=== PATIENT | male | born 1950 | race Caucasian/White ===

== ENCOUNTER 2017-10-30 06:42 | Observation (INO) ==
[2017-10-30] MEDS ORDERED: Bupivacaine/Epinephrine 0.5% Inj 50 ML Vial ONE (07:00)
[2017-10-30] MEDS ORDERED: fentaNYL Citrate Inj 100 MCG/2 ML Ampul ONE ×2 (07:10→11:36)
[2017-10-30] MEDS ORDERED: Chlorhexidine Gluconate 2% 1 Pack (2 Cloths) TOPICAL SCH (07:30)
[2017-10-30] MEDS ORDERED: Metoprolol Tartrate 25 MG Tablet PO SCH (07:30)
[2017-10-30] MEDS ORDERED: Sodium Chlor 0.9% Inj 500 ML IV.SIG SCH (08:00)
[2017-10-30] MEDS ORDERED: ceFAZolin Inj 2,000 MG in Sodium Chlor 0.9% Inj 100 ML IV.SIG SCH (08:15)
[2017-10-30] MEDS ORDERED: ceFAZolin 2 GM Premix Inj 2 GM/100 ML BAG IV.SIG ONE (08:17)
[2017-10-30] MEDS ORDERED: Famotidine PF Inj 20 MG/2 ML Vial ONE (08:19)
[2017-10-30] MEDS ORDERED: Lidocaine 2% Jelly 5 ML Syringe ONE (08:42)
[2017-10-30] MEDS ORDERED: Propofol Inj 500 MG/50 ML Vial ONE (09:37)
[2017-10-30] MEDS: Thrombin Topical Soln 5,000 UNIT Vial TOPICAL ONE (10:31)
[2017-10-30] MEDS: Gelatin Size 100 Topical Foam ONE (10:31)
--- NOTE | 2017-10-30 11:25 | XR ---
EXAM DATE: 10/30/2017 11:19 AM EDT AGE/SEX: 67 years / Male INDICATIONS: L4-L5 lumbar laminectomy. Level localization. CLINICAL DATA: This is the patient's initial encounter. Patient reports that signs and symptoms have been present for 1 day and indicates a pain score of Nonresponsive. MEDICAL/SURGICAL HISTORY: Non-responsive. Non-responsive. COMPARISON: No prior exams available for comparison. FINDINGS: Single lateral spot image of the lumbar spine demonstrates posterior metallic markers at L4-5. CONCLUSION: Lateral lumbar spine image for level localization purposes. Electronically signed by: Timothy Garcia MD 10/30/2017 11:24 AM EDT
[2017-10-30] MEDS ORDERED: Morphine Inj 4 MG/ML Vial ONE (11:37)
[2017-10-30] MEDS ORDERED: *morphine SULFATE 10 MG/ML PERIprocedure ONLY ONE ×2 (11:44→12:20)
--- NOTE | 2017-10-30 11:53 | P.OP ---
- Preoperative Diagnosis (1) Lumbar spinal stenosis (2) Lumbar disc herniation - Postoperative Diagnosis (1) Lumbar spinal stenosis Date of procedure: 10/30/17 Procedure: LEFT L4-5 HEMILAMINECTOMY, MESIOFACETECTOMY, FORAMINOTOMY, MICROSURGICAL RESECTION OF THE DISK Anesthesia: DIONY Surgeon: Antonino Kahn MD Inbound Customer Service Representative: Cydney Rick Pathology: none sent Operation and Findings: INDICATIONS FOR THE SURGICAL PROCEDURE Mr Hoff is a 67 year-old male who presented with intractable back pain and clinical evidence of left L5 lower extremity radiculopathy. He was found to have a severe spinal stenosis with large disk herniation at L4-5 causing significant stenosis with significant mass effect on the neural structures which correlated with his clinical symptoms. He was unable to control his pain with conservative treatment ambulate. The patient has failed nonsurgical management. A surgical decompression were indicated as a last resort. The ausi-ke-aafm details of the procedure, indications, alternatives, risks and potential complications were fully discussed with the patient. The patient fully understood. All the questions were answered. No guarantees were given. The patient voiced requesting the procedure and signed informed consents. The patient was offered the alternative of delaying the procedure and continuing with nonsurgical management. DETAILS OF THE SURGICAL PROCEDURE After the induction of general anesthesia, endotracheal intubation was performed. A Tellez catheter, bilateral JULIA hose and sequential compression devices were placed and kept throughout the procedure. The patient was positioned prone on a Jovon table over a Andrzej frame. All pressure points were carefully padded with eggcrate mattress. The eyes were tapped shut after ointment was applied by the anesthesiologist to prevent corneal abrasion. A Bernardino hugger was placed over the exposed lower body to maintain control of the core body temperature. The lower lumbar region was prepped and draped in the usual sterile fashion. A spinal needle was placed for localization and an x- ray performed with a C-arm. A skin incision was made in the midline over the spinous processes L4-5 with a # 10 blade. Small subcutaneous bleeders were controlled with a bipolar and the dissection was carried out through the lumbar fascia exposing the spinous processes. A subperiosteal dissection was performed with a Albert elevator and a Bovie over the L4-5 spinous process lamina and facets. A microdiscectomy self- retaining retractor was placed on the incision and an x-ray was obtained with an instrument placed underneath the lamina. At this point in the procedure the operating microscope was draped in the usual sterile fashion and brought to the field. The rest of the surgical procedure was performed using microsurgical dissection technique with exception of the closure. Once the level was confirmed, a decompressive laminectomy was performed at L4-5 on the left side using the TPS drill with a 4mm drill bit. A medial facetectomy was performed and the superior free border of the ligamentum flavum was dissected with a ligament dissector and removed with a thin footplate 2 mm Kerrison The medial facetectomy allowed me to expose the L5 nerve root, which was identified and followed towards its exit in the foramen. Epidural veins located laterally to the dural sac were coagulated with a bipolar and incised with microscissors. Gentle medial retraction of the dural sac allowed inspection of the disc space. The patient had a severe facet hypertrophy with hypertrophy of the ligamentum Flavum and an associated disc herniation, causing mass effect over the exiting nerve root. The annulus fibrosus of the disc was coagulated with the bipolar and incised with an 11 blade. The herniated disc was carefully dissected from the surrounding tissue and removed with pituitary forceps. Then, a microdiscectomy was carried out in the standard fashion using straight and up-biting pituitary forceps. A good decompression of the dural sac and nerve root was achieved. The exit of the nerve root was inspected for residual disc fragments and hemostasis was secured with the bipolar. The incision was irrigated with a large amount of saline solution. A Valsalva maneuver failed to show any cerebrospinal fluid leak or bleeding. The decompression was assessed again and found to be satisfactory. The incision was then closed in layers. The fascia was closed with 0 Vicryl sutures in an interrupted fashion. The superficial fascia was closed with 0 Vicryl sutures. The fascia was infiltrated with 0.5% Marcaine with epinephrine 1:100,000 dilution. The subcutaneous tissue was irrigated then closed with 0 Vicryl and 3 -0 Vicryl. The skin was closed with 4-0 running subcuticular Vicryl. Dermabond was applied to the skin. A sterile dressing was applied. At the end of the procedure, the sponge, needle and instrument counts were all correct. Estimated blood loss was less than 50 cc. No blood transfusion was given. No intraoperative complications occurred. The patient received prophylactic antibiotics. The patient was then extubated and transferred to the recovery room in stable condition.
[2017-10-30] MEDS ORDERED: Neostigmine Inj 5 MG/5 ML Syringe IV.PUSH ONE (12:00)
[2017-10-30] MEDS ORDERED: Glycopyrrolate Inj 1 MG/5 ML Syringe IV.PUSH ONE (12:00)
[2017-10-30] MEDS ORDERED: Lidocaine PF 1% Inj 5 ML Syringe INFILTRATN ONE (12:00)
[2017-10-30] MEDS ORDERED: Phenylephrine/NS 1000 MCG/10ML Syringe IV.PUSH ONE (12:00)
[2017-10-30] MEDS ORDERED: Bisacodyl 10 MG Supp RECTAL PRN ×2 (12:06→12:08)
[2017-10-30] MEDS ORDERED: *Meperidine Inj 25 MG/ML Vial PERIprocedural Use ONLY ONE (12:06)
[2017-10-30] MEDS ORDERED: Loratadine 10 MG Tablet PO PRN (17:01)
[2017-10-30] MEDS ORDERED: Dextrose 50% in Water 50 ML Vial IV.PUSH PRN ×2 (17:45→18:00)
[2017-10-30] MEDS: HYDROmorphone PF Inj 2 MG/ML Vial IV.PUSH PRN ×2 (18:33→23:55)
[2017-10-30] MEDS: Gabapentin 300 MG Capsule PO SCH (18:33)
[2017-10-30] MEDS ORDERED: Senna/Docusate Sodium 8.6/50 MG Tablet PO SCH (21:00)
[2017-10-30] MEDS ORDERED: Insulin NovoLOG Aspart Correctional Sugar Inj SQ SCH (21:00)
[2017-10-30] MEDS: Insulin NovoLIN Regular Correctional Sugar Inj SQ SCH (21:00)
[2017-10-30] MEDS: Senna/Docusate Sodium 8.6/50 MG Tablet PO SCH (21:04)
[2017-10-31] MEDS: Thrombin Topical Soln 5,000 UNIT Vial TOPICAL ONE (06:13)
[2017-10-31] MEDS: Gelatin Size 100 Topical Foam ONE (06:13)
[2017-10-31] MEDS: Gabapentin 300 MG Capsule PO SCH ×3 (07:53→11:59)
[2017-10-31] MEDS: amLODIPine 10 MG Tablet PO SCH ×2 (07:53→08:24)
[2017-10-31] MEDS: Insulin NovoLIN Regular Correctional Sugar Inj SQ SCH (08:23)
[2017-10-31] MEDS: Senna/Docusate Sodium 8.6/50 MG Tablet PO SCH (08:25)
[2017-10-31] MEDS ORDERED: EMPAGLIFLOZIN 25 MG PO SCH ×2 (09:00)
--- NOTE | 2017-10-31 11:44 | P.PNNS ---
Subjective Interval history: Postop day #1 lumbar microdiscectomy. No significant pain weakness or numbness in the lower extremities. Mild to moderate low back pain. Ambulating well without assistance. Physical therapy notes reviewed. No complaint of bowel or bladder dysfunction. No nausea. Physical Exam Vital signs: Vital Signs 10/30/17 11:45 10/30/17 11:48 10/30/17 12:00 Temperature Pulse Rate 88 89 Respiratory Rate 15 16 16 Blood Pressure 155/72 H 159/87 H Pulse Oximetry 96 95 10/30/17 12:15 10/30/17 12:30 10/30/17 12:45 Temperature 97.6 F Pulse Rate 88 90 95 H Respiratory Rate 16 15 16 Blood Pressure 151/79 H 147/82 H 145/76 H Pulse Oximetry 94 L 96 10/30/17 13:29 10/30/17 16:00 10/30/17 20:00 Temperature 98.2 F 97.2 F L 97.8 F Pulse Rate 91 H 101 H 81 Respiratory Rate 16 16 18 Blood Pressure 140/66 130/76 141/75 H Pulse Oximetry 90 L 92 L 94 L 10/31/17 00:00 10/31/17 01:00 10/31/17 04:00 Temperature 97.8 F 97.8 F Pulse Rate 81 68 Respiratory Rate 17 16 17 Blood Pressure 142/67 H 148/76 H Pulse Oximetry 94 L 94 L 10/31/17 06:30 10/31/17 07:51 10/31/17 10:23 Temperature 98.1 F Pulse Rate 75 Respiratory Rate 16 16 18 Blood Pressure 165/81 H Pulse Oximetry Intake & Output 10/30/17 10/31/17 10/31/17 18:59 06:59 18:59 Intake Total 1600 / 1600 1220 / 1220 1000 / 1000 Output Total 925 / 925 Balance 1600 / 1600 295 / 295 1000 / 1000 Weight 93.5 kg 93.5 kg Intake: IV 100 / 100 1220 / 1220 1000 / 1000 NS + KCl 20 mEq Inj 1,000 ML @ 1000 / 1000 100 mls/hr IV.CONT .Q10H [facility] Rx #:[id number] LR 1000 mL Inj 1,000 ML @ 30 1000 / 1000 mls/hr IV.SIG .Q24H [facility] Rx#: [id number] Ancef Inj 1,000 MG In NS Inj 100 / 100 100 / 100 100 ML @ 200 mls/hr IV.SIG Q8H [facility] Rx#:[id number] Ancef Inj 2,000 MG In NS Inj 120 / 120 100 ML @ 240 mls/hr IV.SIG DRILL FOREMAN [facility] Rx#:[id number] Anesthesia Amount 1500 / 1500 Output: Urine 925 / 925 Other: Date of Last Bowel Movement 10/30/17 Weight On Admission 93.5 kg Narrative: Awake and alert conversant appropriate Dressing dry and intact. Sitting up in a chair. Appears comfortable Sensation intact light touch lower extremities Strength normal major flexion and extension groups lower extremities No significant lower extremity edema Respirations clear and regular Assessment and Plan - Plan Impression: 1. Doing well postop day #1 lumbar microdiscectomy. No significant residual radicular pain or sensorimotor changes. Plan: Discussed with patient and his Discharge home today Wound care, activity precautions, signs and symptoms to watch for fully discussed. All questions answered
[2017-11-03 18:00] VITALS: BP 165/81; PULSE 75; TEMP 98.1; O2SAT 94
[2017-11-03 18:01] VITALS: RESP 18
== END 2017-10-31 13:00 | disposition home or self-care (01) ==
LOC: N06 06:42 → HSDC 06:42 → HSDI 06:42 → N06 12:56
PROVIDERS: ADMIT Neurological Surgery; ATTEND Neurological Surgery